=== PATIENT | female | born 1985 | race African-American/Black ===

== ENCOUNTER 2018-08-09 16:01 | Emergency (ER) | payer SELFPAY ==
[2018-08-09 18:16] LABS: ABSOLUTE BASOPHILS # (AUTO) 0.1 10^3/uL (0.0-0.2); ABSOLUTE EOSINOPHILS # (AUTO) 0.2 10^3/uL (0.0-0.6); ABSOLUTE MONOCYTES (AUTO) 1.3 10^3/uL (0.1-1.4); ABSOLUTE NEUT (AUTO) 13.3 10^3/uL (1.7-8.2); BASOPHILS % (AUTO) 0.5 % (0-2); EOSINOPHILS % (AUTO) 1.4 % (0-6); HEMATOCRIT 34.2 % (36.0-47.0); HEMOGLOBIN 11.3 g/dL (12.0-15.5); LYMPHOCYTES % (AUTO) 12.1 % (13-45); MEAN CORPUSCULAR HGB CONC 33.1 g/dL (32.0-36.0); MEAN CORPUSCULAR VOLUME 85 fl (80-97); MONOCYTES % (AUTO) 7.7 % (3-13); PLATELET COUNT 385 10^3/uL (150-450); RED BLOOD COUNT 4.04 10^6/uL (3.72-5.28); RED CELL DISTRIBUTION WIDTH 13.1 % (11.5-14.0); SEGMENTED NEUTROPHILS % (AUTO) 78.3 % (42-78); TOTAL CELLS COUNTED % (AUTO) 100 %; WHITE BLOOD COUNT 16.9 10^3/uL (4.0-10.5)
[2018-08-09 18:24] LABS: APPEARANCE,URINE SLIGHTLY-CLOUDY; BILIRUBIN,URINE NEGATIVE (NEGATIVE); COLOR,URINE STRAW; GLUCOSE, URINE NEGATIVE (NEGATIVE); KETONES,URINE TRACE mg/dL (NEGATIVE); LEUKOCYTE ESTERASE,URINE NEGATIVE (NEGATIVE); NITRITE,URINE NEGATIVE (NEGATIVE); PROTEIN,URINE NEGATIVE (NEGATIVE); URINE SPECIFIC GRAVITY 1.008; UROBILINOGEN,URINE NEGATIVE mg/dL (<2.0)
[2018-08-09 18:30] LABS: ALANINE AMINOTRANSFERASE 13 U/L (9-52); ALBUMIN 4.4 g/dL (3.5-5.0); ALKALINE PHOSPHATASE 62 U/L (38-126); ANION GAP 13 (5-19); ASPARTATE AMINO TRANSFERASE 18 U/L (14-36); BILIRUBIN,DIRECT 0.3 mg/dL (0.0-0.4); BILIRUBIN,TOTAL 0.5 mg/dL (0.2-1.3); BLOOD UREA NITROGEN 3 mg/dL (7-20); CALCIUM 9.7 mg/dL (8.4-10.2); CARBON DIOXIDE 29 mmol/L (22-30); CHLORIDE 98 mmol/L (98-107); GLUCOSE 97 mg/dL (75-110); LIPASE 19.7 U/L (23-300); POTASSIUM 3.8 mmol/L (3.6-5.0); SODIUM 139.8 mmol/L (137-145); TOTAL PROTEIN 7.9 g/dL (6.3-8.2)
[2018-08-09] MEDS ORDERED: PROMETHAZINE HCL 25 MG TABLET PO ONE (18:38)
[2018-08-09] MEDS ORDERED: HYDROCODONE/ACETAMINOPHEN 5-325 MG TABLET PO ONE (18:38)
--- NOTE | 2018-08-09 18:44 | ER Document Report ---
ED GI/ - General Chief Complaint: Abdominal Pain Stated Complaint: ABDOMINAL PAIN/BACK PAIN Time Seen by Provider: 08/09/18 17:23 Notes: Patient is a 33-year-old female that comes to the emergency department for chief complaint of abdominal pain, pain is worse in the lower abdomen/pelvic area, worse on the left side. She denies fever chills, vomiting, reports mild nausea. No bowel movement for the past day or so but normal before that. Reports vague lower back pain. She does report vaginal discharge, denies dysuria. LMP within the past month. She denies any surgeries or daily medications. She is sexually active with her fianc. Patient separately reports ongoing sinus congestion and cough for several weeks. No wheezing, denies asthma, she does smoke. TRAVEL OUTSIDE OF THE [place] IN LAST 30 DAYS: No - Related Data Allergies/Adverse Reactions: No Known Allergies Allergy (Verified 06/25/16 09:21) Past Medical History - General Information source: Patient - Social History Smoking Status: Current Every Day Smoker Chew tobacco use (# tins/day): No Frequency of alcohol use: None Drug Abuse: None Lives with: Family Family History: Reviewed & Not Pertinent Patient has suicidal ideation: No Patient has homicidal ideation: No Pulmonary Medical History: Reports: Hx Asthma Renal/ Medical History: Denies: Hx Peritoneal Dialysis Past Surgical History: Reports: Hx Gynecologic Surgery - LEEP 2010 - Immunizations Immunizations up to date: Yes Hx Diphtheria, Pertussis, Tetanus Vaccination: Yes Review of Systems - Review of Systems Constitutional: No symptoms reported EENT: See HPI Cardiovascular: No symptoms reported Respiratory: No symptoms reported Gastrointestinal: See HPI Genitourinary: No symptoms reported Female Genitourinary: No symptoms reported Musculoskeletal: No symptoms reported Skin: No symptoms reported Hematologic/Lymphatic: No symptoms reported Neurological/Psychological: No symptoms reported Physical Exam - Vital signs Vitals: Temp Pulse Resp BP Pulse Ox 98.7 F 90 16 118/80 99 08/09/18 16:09 08/09/18 16:09 08/09/18 16:09 08/09/18 16:09 08/09/18 16:09 - Notes Notes: GENERAL: Alert, interacts well. No acute distress. HEAD: Normocephalic, atraumatic. EYES: Pupils equal, round, and reactive to light. Extraocular movements intact. ENT: Oral mucosa moist, tongue midline. Oropharynx unremarkable. Airway patent. Nasal congestion,, no nasal septal hematoma, TM's intact. Tenderness over maxillary sinuses. NECK: Full range of motion. Supple. Trachea midline. LUNGS: Clear to auscultation bilaterally, no wheezes, rales, or rhonchi. No respiratory distress. HEART: Regular rate and rhythm. No murmur ABDOMEN: Patient is tender over the left lower quadrant and reaction pain, right lower quadrant and upper abdomen are benign. No rigidity or distention. GENITOURINARY: External exam with no concerning N normality. Vaginal exam showing large amount of vaginal discharge with some tenderness. No lesions noted. Unremarkable exam otherwise. Brandi PCT present during exam. EXTREMITIES: Moves all 4 extremities spontaneously. No edema, normal radial and dorsalis pedis pulses bilaterally. No cyanosis. BACK: no cervical, thoracic, lumbar midline tenderness. No saddle anesthesia, normal distal neurovascular exam. NEUROLOGICAL: Alert and oriented x3. Normal speech. [cranial nerves II through XII grossly intact]. PSYCH: Normal affect, normal mood. SKIN: Warm, dry, normal turgor. No rashes or lesions noted. Course - Re-evaluation Re-evalutation: Patient has pelvic pain on exam, large amount of vaginal discharge, some pain and irritation of the cervix, strangely the wet mount appears normal, however I think this was either swab error for a poor swab. Incidental findings on ultrasound only, no tubo-ovarian abscess, cyst, or concerning findings. Patient does have leukocytosis at 16,000. Chemistry unremarkable. Urine unremarkable. Gonorrhea and Chlamydia are negative. Patient's presentation and exam are most consistent with a pelvic infection. I do not suspect an acute abdomen based on her left lower quadrant pain/pelvic pain and presentation. Vital signs unremarkable. No fever. Discussed with patient. Decision was made to proceed with treatment for both her sinusitis and pelvic pain/infection with Rocephin dose and doxycycline course. Discussed follow-up and return precautions with patient in detail. Patient states understanding and agreement with plan. - Vital Signs Vital signs: Temp Pulse Resp BP Pulse Ox 98.7 F 82 16 111/72 100 08/09/18 16:09 08/09/18 21:45 08/09/18 21:45 08/09/18 21:45 08/09/18 21:45 - Laboratory Result Diagrams: 08/09/18 17:55 08/09/18 17:55 Laboratory results interpreted by me: 08/09/18 08/09/18 08/09/18 17:55 17:55 17:55 WBC 16.9 H Hgb 11.3 L Hct 34.2 L Seg Neutrophils % 78.3 H Lymphocytes % 12.1 L Absolute Neutrophils 13.3 H BUN 3 L Lipase 19.7 L Urine Ketones TRACE H Discharge - Discharge Clinical Impression: Abdominal pain Qualifiers: Abdominal location: lower abdomen, unspecified Qualified Code(s): R10.30 - Lower abdominal pain, unspecified Sinusitis Qualifiers: Sinusitis location: unspecified location Chronicity: acute Recurrence: non- recurrent Qualified Code(s): J01.90 - Acute sinusitis, unspecified Condition: Stable Disposition: HOME, SELF-CARE Additional Instructions: Your evaluation indicates pelvic infection and likely sinus infection. Ultrasound shows a possible polyp, no concerning acute findings. Follow-up with [facility] for additional management. Take antibiotics as prescribed, take Flonase as prescribed, you can take over- the-counter medication such as Sudafed, ibuprofen, etc. Return to the emergency department for any concerning worsening symptoms including fever, vomiting, severe abdominal pain, or any other concerning or worsening symptoms. Prescriptions: Doxycycline Hyclate 100 mg PO BID #14 capsule Fluticasone Propionate [Flonase Nasal [place] 50 Mcg/[place] 16 gm] 2 sprays NASL Q12 #1 inhaler Forms: Return to Work
[2018-08-09 19:06] LABS: EPITHELIALS (WET MOUNT) 4+ EPITHELIALS SEEN; RBCS (WET MOUNT) NO RBCS SEEN; T.VAGINALIS (WET MOUNT) NO TRICHOMONAS SEEN; WBCS (WET MOUNT) RARE WBCS SEEN; YEAST (WET MOUNT) NO YEAST SEEN
--- NOTE | 2018-08-09 20:14 | RADIOLOGY REPORT (SQ) ---
EXAM DESCRIPTION: U/S NON OB PEL TV W/DOPPLER COMPLETED DATE/TIME: 08/09/2018 7:56 pm REASON FOR STUDY: LLQ pain, pelvic infection; TOA? COMPARISON: None. TECHNIQUE: Dynamic and static grayscale images acquired of the pelvis via transvaginal approach and recorded on PACS. Additional selected color Doppler and spectral images recorded. LIMITATIONS: None. FINDINGS: UTERUS: Contour normal. No mass. ENDOMETRIAL STRIPE: There is a focal area of thickening that may represent polyp. CERVIX: No nabothian cysts. RIGHT OVARY AND DOPPLER: Normal size. No worrisome masses. Normal arterial vascular flow without evid ence for torsion. LEFT OVARY AND DOPPLER: Normal size. No worrisome masses. Normal arterial vascular flow without evide nce for torsion. FREE FLUID: There is a small amount of free fluid. OTHER: No other significant finding. MEASUREMENTS: UTERUS: 8.5 x 3.5 x 4.2 cm. ENDOMETRIAL STRIPE: 11 mm. RIGHT OVARY: 3.7 x 2.7 cm. LEFT OVARY: 3.4 x 2.8 cm. IMPRESSION: 1. There is a focal area of thickening of the endometrium that may represent a polyp. 2. No acute finding is seen in the pelvis. There is a small amount of fluid. There is no evidence of tubo-ovarian abscess. TECHNICAL DOCUMENTATION: JOB ID: [id number] [employer]- All Rights Reserved Rev-01/22 Reading location - IP/workstation name: [email or web address]
[2018-08-09 20:33] LABS: CHLAM PCR NOT DETECTED (NOT DETECT); GON PCR NOT DETECTED (NOT DETECT)
[2018-08-09] MEDS ORDERED: AZITHROMYCIN 250 MG TABLET PO ONE (20:39)
[2018-08-09] MEDS ORDERED: LIDOCAINE 1% INJ-PF (10 MG/ML) 30 ML SDV INJ ONE (20:39)
[2018-08-09] MEDS ORDERED: CEFTRIAXONE INJ 250 MG VIAL IM ONE (20:39)
[2018-08-09] MEDS ORDERED: DOXYCYCLINE HYCLATE 100 MG TABLET PO ONE (20:43)
[2018-08-09 22:10] VITALS: BP 111/72
== END 2018-08-09 21:45 | disposition home or self-care (01) ==
LOC: ER 16:01
DX: J01.90 Acute sinusitis, unspecified (principal); R10.30 Lower abdominal pain, unspecified; R10.2 Pelvic and perineal pain; M54.5 Low back pain; N89.8 Other specified noninflammatory disorders of vagina; R09.81 Nasal congestion; R05 Cough; F17.200 Nicotine dependence, unspecified, uncomplicated; J45.909 Unspecified asthma, uncomplicated
CPT/HCPCS: 99284; 96372; 36415; 87210; 83690; 85025; 81025; 80053; 81001; 87491; 87591; 76830; 93976; J3490; J0696

== ENCOUNTER 2018-09-20 16:53 | Emergency (ER) | payer SELFPAY ==
--- NOTE | 2018-09-20 18:41 | ER Document Report ---
HPI - HPI Time Seen by Provider: 09/20/18 18:04 Pain Level: 4 Notes: Patient is an otherwise healthy 33-year-old female who presents with chief complaint of cough, congestion and sore throat that is been going on for 2 days. Patient reports 1 of her coworkers who sits right next to her at work had similar symptoms a few days ago. Patient states that she frequently gets strep throat this time of year. She denies any fever. - CONSTITUTIONAL Constitutional: REPORTS: Fever, Chills - EENT EENT: REPORTS: Sore Throat - NEURO Neurology: REPORTS: Headache - RESPIRATORY Respiratory: REPORTS: Coughing - REPRODUCTIVE Reproductive: DENIES: : Past Medical History - General Information source: Patient - Social History Smoking Status: Current Every Day Smoker Chew tobacco use (# tins/day): No Frequency of alcohol use: Occasional Drug Abuse: None Family History: Reviewed & Not Pertinent Patient has suicidal ideation: No Patient has homicidal ideation: No Pulmonary Medical History: Reports: Hx Asthma Renal/ Medical History: Denies: Hx Peritoneal Dialysis Past Surgical History: Reports: Hx Gynecologic Surgery - LEEP 2009 - Immunizations Immunizations up to date: Yes Hx Diphtheria, Pertussis, Tetanus Vaccination: Yes Vertical Provider Document - CONSTITUTIONAL Notes: PHYSICAL EXAMINATION: GENERAL: Well-appearing, well-nourished and in no acute distress. HEAD: Atraumatic, normocephalic. EYES: Pupils equal round extraocular movements intact, conjunctiva are normal. ENT: Nares patent, oropharynx mildly erythematous, no tonsillar swelling or exudates noted. NECK: Normal range of motion LUNGS: No respiratory distress Musculoskeletal: Normal range of motion NEUROLOGICAL: Normal speech, normal gait. PSYCH: Normal mood, normal affect. SKIN: Warm, Dry, normal turgor, no rashes or lesions noted. - INFECTION CONTROL TRAVEL OUTSIDE OF THE [place] IN LAST 30 DAYS: No Course - Re-evaluation Re-evalutation: Rapid strep is negative. Likely viral upper respiratory illness. Patient will be placed on medications to aid in her symptoms. Patient provided with a work note. - Vital Signs Vital signs: Temp Pulse Resp BP Pulse Ox 98.5 F 71 16 117/70 99 09/20/18 17:04 09/20/18 17:04 09/20/18 17:04 09/20/18 17:04 09/20/18 17:04 Discharge - Discharge Clinical Impression: Viral upper respiratory infection Condition: Stable Disposition: HOME, SELF-CARE Additional Instructions: UPPER RESPIRATORY ILLNESS: You have a viral infection of the respiratory passages -- a "cold." This common infection causes nasal congestion, drainage, and often sore throat and cough. It is highly contagious. The disease usually lasts about 10 to 14 days. There is no "cure" for the viral infection -- it must run its course. If there is a complication, such as bacterial infection in the nose, sinuses, middle ear, or bronchial tubes, antibiotics may be required. The antibiotics won't affect the virus. Drink plenty of fluids. A humidifier may help. An expectorant medication or decongestant may make you more comfortable. Use acetaminophen or ibuprofen for fever or aches. See the doctor if fever persists over two days, if there is any significant worsening of your symptoms, or if you simply fail to improve as expected. COUGH-SUPPRESSANT & EXPECTORANT MEDICATION: You are to use a cough medication as needed for relief of symptoms. This medicine is a combination of an expectorant (to make the mucous thinner and more easily "coughed up") and a cough suppressant (to reduce the frequency of coughing). The cough-suppressant medicine is related to narcotics. You may experience mild nausea and sleepiness. Some patients who are very sensitive to narcotics may have stomach pain from this medicine. Taking the medicine with food reduces these side effects. Do not drive or work with machinery until you know how this medicine affects you. The expectorant should have no side effects. Iodine-containing expectorants (such as organidin) should not be taken by persons with active thyroid disease unless approved by your doctor. Call the doctor if you develop shortness of breath, hives, rash, itching, lightheadedness, or severe nausea and vomiting. STEROID MEDICATION: You have been given an injection of or oral medicine of the cortisone/steroid class. This medication is used to control inflammation or allergy. Carter t is usually only given for a short period of time, until the acute process subsides. There are usually no side effects from short-term use of cortisone-like medications. Some persons feel an increased sense of well-being and are not sleepy at bedtime. Long-term use of cortisone medications is best avoided, unless required for a severe condition. If your condition does not remit, or relapses after the course of corticosteroid medication, you should consult your physician. USE OF ACETAMINOPHEN (Tylenol): Acetaminophen may be taken for pain relief or fever control. It's much safer than aspirin, offering a wider range of "safe" dosages. It is safe during . Some brand names are Tylenol, Panadol, Datril, Anacin 3, Tempra, and Liquiprin. Acetaminophen can be repeated every four hours. The following are maximum recommended dosages: >89 pounds or adults 650 mg to 900 mg Acetaminophen can be repeated every four hours. Maximum dose not to exceed 4000 mg a day. SMOKING: If you smoke, you should stop smoking. The tar and chemicals in cigarette smoke are harmful. Smoking has been shown to cause: emphysema chronic bronchitis lung cancer mouth and throat cancer stomach and pancreas cancer premature aging defects In addition, smoking increases ear and lung infections in children of smokers. FOLLOW-UP CARE: If you have been referred to a physician for follow-up care, call the physicians office for an appointment as you were instructed or within the next two days. If you experience worsening or a significant change in your symptoms, notify the physician immediately or return to the Emergency Department at any time for re-evaluation. Prescriptions: Benzonatate [Tessalon Per[place] 100 mg Capsule] 100 mg PO Q8HP PRN #40 capsule PRN Reason: Fluticasone Propionate [Flonase Nasal [place] 50 Mcg/[place] 16 gm] 2 sprays NASL Q12 #1 inhaler RX: Prednisone [Deltasone 20 mg Tablet] 3 tab PO DAILY 5 Days #15 tablet Forms: Return to Work
[2018-09-20 19:30] VITALS: BP 116/86
== END 2018-09-20 19:34 | disposition home or self-care (01) ==
LOC: ER 16:53
DX: J06.9 Acute upper respiratory infection, unspecified (principal); J02.9 Acute pharyngitis, unspecified; F17.200 Nicotine dependence, unspecified, uncomplicated
CPT/HCPCS: 87070; 87880; 99283

== ENCOUNTER 2019-04-22 11:21 | Emergency (ER) | payer SELFPAY ==
[2019-04-22] MEDS ORDERED: OXYCODONE-ACETAMINOPHEN 5-325 MG TABLET PO ONE (11:50)
--- NOTE | 2019-04-22 11:51 | ER Document Report ---
ED Medical Screen (RME) - General Chief Complaint: Back Pain Stated Complaint: LOWER BACK PAIN Time Seen by Provider: 04/22/19 11:45 Mode of Arrival: Ambulatory Information source: Patient Notes: Patient presents complaining of bilateral flank pain for the past 3 days. Patient denies any abdominal pain, urinary symptoms, fever, nausea or vomiting. Patient denies any concern about . Patient denies any injury. I have greeted and performed a rapid initial assessment of this patient. A comprehensive ED assessment and evaluation of the patient, analysis of test results and completion of the medical decision making process will be conducted by additional ED providers. TRAVEL OUTSIDE OF THE [place] IN LAST 30 DAYS: No - Related Data Allergies/Adverse Reactions: No Known Allergies Allergy (Verified 04/22/19 11:23) Past Medical History - Social History Chew tobacco use (# tins/day): No Frequency of alcohol use: Occasional Drug Abuse: None Pulmonary Medical History: Reports: Hx Asthma Renal/ Medical History: Denies: Hx Peritoneal Dialysis Past Surgical History: Reports: Hx Gynecologic Surgery - LEEP 2010 - Immunizations Immunizations up to date: Yes Hx Diphtheria, Pertussis, Tetanus Vaccination: Yes Physical Exam - Vital signs Vitals: Temp Pulse Resp BP Pulse Ox 97.5 F 83 14 130/98 H 100 04/22/19 11:27 04/22/19 11:27 04/22/19 11:27 04/22/19 11:27 04/22/19 11:27 - General Notes: Bilateral CVA tenderness Course - Vital Signs Vital signs: Temp Pulse Resp BP Pulse Ox 97.5 F 83 14 130/98 H 100 04/22/19 11:27 04/22/19 11:27 04/22/19 11:27 04/22/19 11:27 04/22/19 11:27
[2019-04-22 12:54] LABS: APPEARANCE,URINE CLOUDY; BILIRUBIN,URINE NEGATIVE (NEGATIVE); COLOR,URINE YELLOW; GLUCOSE, URINE NEGATIVE (NEGATIVE); KETONES,URINE NEGATIVE (NEGATIVE); LEUKOCYTE ESTERASE,URINE LARGE (NEGATIVE); NITRITE,URINE NEGATIVE (NEGATIVE); PROTEIN,URINE NEGATIVE (NEGATIVE); URINE SPECIFIC GRAVITY 1.009; UROBILINOGEN,URINE NEGATIVE mg/dL (<2.0)
[2019-04-22 13:21] LABS: ABSOLUTE EOSINOPHILS # (AUTO) 0.4 10^3/uL (0.0-0.6); ABSOLUTE LYMPHOCYTES (AUTO) 2.3 10^3/uL (0.5-4.7); ABSOLUTE MONOCYTES (AUTO) 0.7 10^3/uL (0.1-1.4); ABSOLUTE NEUT (AUTO) 7.8 10^3/uL (1.7-8.2); BASOPHILS % (AUTO) 0.4 % (0-2); EOSINOPHILS % (AUTO) 3.6 % (0-6); HEMATOCRIT 35.8 % (36.0-47.0); HEMOGLOBIN 11.5 g/dL (12.0-15.5); LYMPHOCYTES % (AUTO) 20.6 % (13-45); MEAN CORPUSCULAR HEMOGLOBIN 27.2 pg (27.0-33.4); MEAN CORPUSCULAR HGB CONC 32.1 g/dL (32.0-36.0); MEAN CORPUSCULAR VOLUME 85 fl (80-97); MONOCYTES % (AUTO) 6.5 % (3-13); PLATELET COUNT 320 10^3/uL (150-450); RED BLOOD COUNT 4.23 10^6/uL (3.72-5.28); SEGMENTED NEUTROPHILS % (AUTO) 68.9 % (42-78); TOTAL CELLS COUNTED % (AUTO) 100 %; WHITE BLOOD COUNT 11.4 10^3/uL (4.0-10.5)
[2019-04-22 13:40] LABS: ALKALINE PHOSPHATASE 54 U/L (38-126); ANION GAP 10 (5-19); ASPARTATE AMINO TRANSFERASE 24 U/L (14-36); BILIRUBIN,DIRECT 0.3 mg/dL (0.0-0.4); BILIRUBIN,TOTAL 0.4 mg/dL (0.2-1.3); BLOOD UREA NITROGEN 7 mg/dL (7-20); CALCIUM 9.2 mg/dL (8.4-10.2); CARBON DIOXIDE 22 mmol/L (22-30); CHLORIDE 104 mmol/L (98-107); GLUCOSE 103 mg/dL (75-110); POTASSIUM 4.3 mmol/L (3.6-5.0)
--- NOTE | 2019-04-22 14:37 | ER Document Report ---
HPI - HPI Patient complains to provider of: low back pain, uti, vaginal discharge Time Seen by Provider: 04/22/19 11:45 Onset/Duration: Gradual Severity: Moderate Pain Level: 3 Context: 34 Yr old female patient, with the listed pmh, here for low back pain worse on the left along with dysuria and frequency x 3 days. also complains of vaginal dc. used an otc monistat vaginal suppository last week as she thought she had a yeast infection. still having dc. no abd pain. LMP last week. No abdominal surgeries. hx of pcos. No history of fibroids, endometriosis, or renal stones. Normal bowel movements. No URI symptoms. No recent antibiotics or steroids. No history of diabetes or asthma. No lesions or concerns for STDs. Hasn't taken anything for her symptoms. No excessive NSAID use, Tylenol use, or EtOH. No prior history of gallbladder disease, pancreatitis, ulcers, GI bleed, GERD, IBS, Crohn's, or UC. no spinal surgeries. no numbness, tingling, weakness, saddle anesthesia or incontinence. pt able to walk. no change in color or caliber or stool. pain not really worse with movement. no fall or trauma. no other associated sx. Similar symptoms previously: Yes - when she had a uti Recently seen / treated by doctor: No - ROS Systems Reviewed and Negative: Yes All other systems reviewed and negative - To include 10 systems, unless mentioned in the hpi. - REPRODUCTIVE Reproductive: DENIES: : - DERM Skin Color: Normal Past Medical History - General Information source: Patient - Social History Smoking Status: Current Every Day Smoker Chew tobacco use (# tins/day): No Frequency of alcohol use: Occasional Drug Abuse: None Family History: Reviewed & Not Pertinent Patient has suicidal ideation: No Patient has homicidal ideation: No Pulmonary Medical History: Reports: Hx Asthma - seasonal, prn inhaler use Endocrine Medical History: Reports: None Renal/ Medical History: Reports: Hx Ovarian Cysts - hx of PCOS. Denies: Hx Peritoneal Dialysis Past Surgical History: Reports: Hx Gynecologic Surgery - LEEP 2009 - Immunizations Immunizations up to date: Yes Hx Diphtheria, Pertussis, Tetanus Vaccination: Yes Vertical Provider Document - CONSTITUTIONAL Agree With Documented VS: Yes Exam Limitations: No Limitations Notes: >>>> PHYSICAL_EXAM: GENERAL_APPEARANCE: well_nourished, alert, cooperative, no_acute_distress, no_obvious_discomfort. Pleasant, young black, female, smiling, speaking in full sentences, in no sign of pain or resp distress, easily sitting up, laying bed resting in no sign of pain, male significant other at bedside VITALS: reviewed, see vital signs table. HEAD: normocephalic, atraumatic. no grant signs. no raccoon eyes. EYES: PERRL, EOMI, (-)scleral icterus. NOSE: no_nasal_discharge. MOUTH: (-)decreased moisture. THROAT: no_tonsilar_inflammation/hypertrophy/exudate NECK: supple, no_neck_tenderness, full rom. full strength. no meningeal signs. BACK: no midline_back_tenderness. no step offs or deformities CHEST_WALL: no_chest_tenderness. LUNGS: no_wheezing, (-)accessory muscle use, good air exchange bilateral. HEART: normal_rate, normal_rhythm, ABDOMEN: normal_BS, soft, abdomen-diffuse, non-tender, (-)guarding, (- )rebound, no distension or peritoneal signs. neg murphys. neg mcburneys. quest bilat cva tenderness. neg heel strike. neg obturator. neg psoas. neg rovsign. GENITALS: no_ulcers_or_lesions on the genitals, no_lacerations on the genitals, PELVIC: (-)tender uterus, left_and_right adnexa non-tender, (-)CMT, (-)active bleeding, (copious)discharge, no_tenderness no cervicitis, normal os, pt consented to exam. exam without incident. education assistantjohnie mahan at bedside during entire exam as color grinder. RECTAL: deferred EXTREMITIES: strength 5/5 in all_extremities, good pulses in all_extremities, no_edema, no_swelling\tenderness. full rom. normal gait. good hand stonework tracer. brisk cap refill. SKIN: warm, dry, good_color, no_rash. no grossly visible overlying skin changes to suggest trauma NEURO: motor_intact, sensory_intact. cranial nerves 2-12 intact, cerebellar fxn intact MENTAL_STATUS: normal_affect, speech_clear, oriented_X_3, responds_appropriately to questions. - INFECTION CONTROL TRAVEL OUTSIDE OF THE [place] IN LAST 30 DAYS: No Course - Re-evaluation Re-evalutation: 04/22/19 15:36 pt here for bilat flank pain, uti sx, and vag dx x a few days. ua indicative of a uti. upreg neg. wet prep showed bv, yeast, and trich, ucx and gc/chlam pending. she didn't want prophylactic tx for gc and chlam. appears she may have a kidney infection, bv, trich, and yeast infection. she was given rocephin 1gm IM here. white count slightly elevated. other labs unremarkable. no fevers or vomiting. pain controlled with the meds or ordered in triage. advised we will call with any abnormal results that require change in plan of care. gave safe sex precautions. advised to have partner tested/treated before any intercourse and to wait atleast a week after completion of the antibiotics to have intercourse. condom use for safe sex. f/u with the health dept for any further desired std testing. will dc with doxy, flagyl, 2 diflucan, and pyridium. advised sx care. drink plenty of fluids. otc meds for pain. advised to f/u with pcp/health dept in 1-2 days. return for any worsening symptoms. vss. well appearing. satting well on ra. neurononfocal. pt understands and agrees to plan. no sign of cauda equina, spinal cord involvement, or central cord syndrome. On reexam, pt improved with tx listed. remained stable. nontoxic. well appearing. pain controlled with triage percocet. tolerating po. requesting to go home. serial abd exams remain benign. Documentation achieved through voice recording which my lead to some occasional accidental typographical errors. Extensive efforts have been made to proof read documentation to make sure these are the least as possible. Category Date Time Status Pelvic Setup (ED) NOW Care 04/22/19 15:16 Ordered Saline Lock (ED) NOW Care 04/22/19 11:48 Active ADD ON [ADD ON TESTING BLD IN LAB] [CHEM] Stat Lab 04/22/19 13:12 Completed CBC WITH DIFF [HEME] Stat Lab 04/22/19 13:12 Completed [facility] [MO] Stat Lab 04/22/19 15:16 Uncollected COMPREHENSIVE METABOLIC PANEL [CHEM] Stat Lab 04/22/19 13:12 Completed HCG-QUAL, SERUM [CHEM] Stat Lab 04/22/19 13:12 Completed LIPASE [CHEM] Stat Lab 04/22/19 13:12 Completed URINALYSIS [URIN] Stat Lab 04/22/19 12:28 Completed URINE CULTURE [MC] Stat Lab 04/22/19 14:37 Uncollected WET MOUNT [MO] Stat Lab 04/22/19 15:16 Uncollected Ceftriaxone Sodium [Rocephin Inj 1000 mg Vial] Med 04/22/19 15:26 Once 1,000 mg IM NOW ONE Lidocaine HCl/Pf [Xylocaine 1% Inj-Pf (10 mg/ml) 30 ml Med 04/22/19 15:26 Once Sdv] 3 ml IM NOW ONE Oxycodone HCl/Acetaminophen [Percocet 5-325 mg Tablet] Med 04/22/19 11:50 Discontinued 1 tab PO NOW ONE 04/22/19 16:07 - Vital Signs Vital signs: Temp Pulse Resp BP Pulse Ox 97.5 F 83 14 130/98 H 100 04/22/19 11:27 04/22/19 11:27 04/22/19 11:27 04/22/19 11:27 04/22/19 11:27 04/22/19 15:35 Temp Pulse Resp BP Pulse Ox 04/22/19 11:27 97.5 F 83 14 130/98 H 100 - Laboratory Result Diagrams: 04/22/19 13:12 04/22/19 13:12 Laboratory results interpreted by me: 04/22/19 04/22/19 04/22/19 12:28 13:12 13:12 WBC 11.4 H Hgb 11.5 L Hct 35.8 L Sodium 136.4 L Urine Blood SMALL H Ur Leukocyte Esterase LARGE H 04/22/19 15:39 Labs- Entire Visit 04/22/19 04/22/19 04/22/19 12:28 13:12 13:12 WBC 11.4 H RBC 4.23 Hgb 11.5 L Hct 35.8 L MCV 85 MCH 27.2 MCHC 32.1 RDW 13.0 Plt Count 320 Seg Neutrophils % 68.9 Lymphocytes % 20.6 Monocytes % 6.5 Eosinophils % 3.6 Basophils % 0.4 Absolute Neutrophils 7.8 Absolute Lymphocytes 2.3 Absolute Monocytes 0.7 Absolute Eosinophils 0.4 Absolute Basophils 0.0 Sodium 136.4 L Potassium 4.3 Chloride 104 Carbon Dioxide 22 Anion Gap 10 BUN 7 Creatinine 0.84 Est GFR ( Amer) > 60 Est GFR (Non-Af Amer) > 60 Glucose 103 Calcium 9.2 Total Bilirubin 0.4 Direct Bilirubin 0.3 Neonat Total Bilirubin Not Reportable Neonat Direct Bilirubin Not Reportable Neonat Indirect Bili Not Reportable AST 24 ALT 12 Alkaline Phosphatase 54 Total Protein 7.0 Albumin 4.0 Lipase Serum HCG, Qual Urine Color YELLOW Urine Appearance CLOUDY Urine pH 6.0 Ur Specific [place] 1.009 Urine Protein NEGATIVE Urine Glucose (UA) NEGATIVE Urine Ketones NEGATIVE Urine Blood SMALL H Urine Nitrite NEGATIVE Urine Bilirubin NEGATIVE Urine Urobilinogen NEGATIVE Ur Leukocyte Esterase LARGE H Urine WBC (Auto) 23 Urine RBC (Auto) 12 Urine Bacteria (Auto) TRACE Squamous Epi Cells Auto 16 Urine Mucus (Auto) RARE Urine Ascorbic Acid NEGATIVE Epi Cells (Wet Prep) Bacteria (Wet Prep) Trichomonas (Wet Prep) Vaginal WBC Vaginal Yeast 04/22/19 04/22/19 04/22/19 13:12 13:12 15:27 WBC RBC Hgb Hct MCV MCH MCHC RDW Plt Count Seg Neutrophils % Lymphocytes % Monocytes % Eosinophils % Basophils % Absolute Neutrophils Absolute Lymphocytes Absolute Monocytes Absolute Eosinophils Absolute Basophils Sodium Potassium Chloride Carbon Dioxide Anion Gap BUN Creatinine Est GFR ( Amer) Est GFR (Non-Af Amer) Glucose Calcium Total Bilirubin Direct Bilirubin Neonat Total Bilirubin Neonat Direct Bilirubin Neonat Indirect Bili AST ALT Alkaline Phosphatase Total Protein Albumin Lipase 77.3 Serum HCG, Qual NEGATIVE Urine Color Urine Appearance Urine pH Ur Specific [place] Urine Protein Urine Glucose (UA) Urine Ketones Urine Blood Urine Nitrite Urine Bilirubin Urine Urobilinogen Ur Leukocyte Esterase Urine WBC (Auto) Urine RBC (Auto) Urine Bacteria (Auto) Squamous Epi Cells Auto Urine Mucus (Auto) Urine Ascorbic Acid Epi Cells (Wet Prep) 3+ EPITHELIALS SEEN Bacteria (Wet Prep) 4+ BACTERIA SEEN Trichomonas (Wet Prep) TRICHOMONAS SEEN Vaginal WBC 2+ WBCS SEEN Vaginal Yeast YEAST SEEN Discharge - Discharge Clinical Impression: Bacterial vaginosis, Trichomonas vaginitis, Vaginal candidiasis UTI (urinary tract infection) Qualifiers: Urinary tract infection type: site unspecified Hematuria presence: with hematuria Qualified Code(s): N39.0 - Urinary tract infection, site not specified; R31.9 - Hematuria, unspecified Leukocytosis Qualifiers: Leukocytosis type: unspecified Qualified Code(s): D72.829 - Elevated white blood cell count, unspecified Condition: Good Disposition: HOME, SELF-CARE Instructions: Urinary Tract Infection ([facility]), Vaginitis ([facility]) Additional Instructions: Follow-up with PCP/health dept in 1 to 2 days. Return for any worsening symptoms. ice/heat to your back. take the medication as prescribed. drink plenty of water. we will call you with any abnormal results that require change in plan of care, f/u with the health dept for any further desired std testing. safe sex precautions. have your partner tested/treated before any intercourse and to wait atleast a week after completion of the antibiotics to have intercourse. no intercourse if you have any symptoms. condom use for safe sex. f/u with the health dept for any further desired std testing. Prescriptions: Doxycycline Hyclate 100 mg PO BID #14 capsule Fluconazole [Diflucan] 150 mg PO ONCE PRN #2 tablet PRN Reason: Metronidazole [Flagyl 500 mg Tablet] 500 mg PO BID #14 tablet Phenazopyridine HCl [Pyridium 100 Mg Tablet] 200 mg PO TID PRN #6 tablet PRN Reason:
[2019-04-22] MEDS ORDERED: CEFTRIAXONE INJ 1000 MG VIAL IM ONE (15:26)
[2019-04-22] MEDS ORDERED: LIDOCAINE 1% INJ-PF (10 MG/ML) 30 ML SDV IM ONE (15:26)
[2019-04-22 15:50] LABS: BACTERIA (WET MOUNT) 4+ BACTERIA SEEN; EPITHELIALS (WET MOUNT) 3+ EPITHELIALS SEEN; T.VAGINALIS (WET MOUNT) TRICHOMONAS SEEN; WBCS (WET MOUNT) 2+ WBCS SEEN; YEAST (WET MOUNT) YEAST SEEN
[2019-04-22 16:30] VITALS: BP 104/66
[2019-04-22 17:18] LABS: CHLAM PCR NOT DETECTED (NOT DETECT)
== END 2019-04-22 16:34 | disposition home or self-care (01) ==
LOC: ER 11:21
DX: N76.0 Acute vaginitis (principal); B96.89 Other specified bacterial agents as the cause of diseases classified elsewhere; A59.01 Trichomonal vulvovaginitis; B37.3 Candidiasis of vulva and vagina; N39.0 Urinary tract infection, site not specified; R31.9 Hematuria, unspecified; D72.829 Elevated white blood cell count, unspecified
CPT/HCPCS: 99283; 96372; 36415; 87086; 87210; 83690; 84703; 85025; 80053; 81001; 87491; 87591; J3490; J0696